=== PATIENT | male | born 1940 | race Caucasian/White ===

== ENCOUNTER 2020-02-11 06:19 | Day surgery (SDC) | payer OTHER ==
[2020-02-10 16:47] VITALS: BMI 26.9
[~2020-02-11 06:19] MED LIST: TOBRAMYCIN/DEXAMETHASONE OPHTH. OINTMENT 1 TUBE OS ONE
[2020-02-11] MEDS ORDERED: ACETAMINOPHEN 325 MG TABLET (FP) PO PRN (06:45)
[2020-02-11] MEDS ORDERED: TOBRAMYCIN/DEXAMETHASONE OPHTH. OINTMENT 1 TUBE ONE (07:02)
[2020-02-11] MEDS ORDERED: CHONDROITIN SU A/HYALUR SOD 1 KIT ONE (07:03)
[2020-02-11] MEDS ORDERED: BSS (NA/CA/MG/K) BALANCED SALT SOLUTION OPHTH SOLN 15 ML BOTTLE ONE (07:12)
[2020-02-11] MEDS ORDERED: LIDOCAINE HCL/PF 1% SDV 5ML VIAL ONE (07:12)
[2020-02-11] MEDS ORDERED: TETRACAINE 0.5% OPHTH SOLN 2 ML BOTTLE ONE (07:12)
[2020-02-11] MEDS ORDERED: EPINEPHrine/PF 1 MG/1 ML (1:1,000) AMPULE ONE (07:12)
[2020-02-11] MEDS ORDERED: TROPICAMIDE 1% OPHTH SOLN 15 ML BOTTLE ONE (07:32)
[2020-02-11] MEDS: KETOROLAC TROMETHAMINE 0.5% EYE DROP 1 DROP DROPS OP SCH ×2 (07:45→07:56)
[2020-02-11] MEDS: CIPROFLOXACIN HCL 0.3% OPHTH 2.5ML BOTTLE OP SCH ×2 (07:45→07:56)
[2020-02-11] MEDS: PHENYLEPHRINE 2.5% OPHTH SOLN 15 ML BOTTLE OP SCH ×2 (07:45→07:56)
[2020-02-11] MEDS: TROPICAMIDE 1% OPHTH SOLN 15 ML BOTTLE OP SCH ×2 (07:45→07:57)
[2020-02-11] MEDS ORDERED: MIDAZOLAM HCL 2 MG/2 ML SINGLE DOSE VIAL ONE (07:53)
--- NOTE | 2020-02-11 08:34 | HP ---
- Patient Scheduled date of Surgery: 02/11/20 Scheduled Surgical Procedure: Phacoemulsification and cataract extraction with PCIOL Affected Eye: Left Chief Complaint (Indication for surgery): Decreased vision affecting ADLs - Ocular History Other Eye History: Other (benitez) Eye Medications: vigamox Previous Eye Surgery: none - Medical History Illnesses: Cardiac Disorders (Chest pain, SOB, AR, Valve disease) (s/p stent), Hypertension, Other (carotid stenosis s/p cea, OA, s/p aortic valve replacement, bladder ca s/p chemo) Current Medications: Ambulatory Orders Aspirin Coated [Ecotrin -] 81 mg PO DAILY 04/10/16 Ezetimibe/Simvastatin [Vytorin 10-20 mg Tablet] 1 tab PO DAILY 04/10/16 Metoprolol Tartrate [Lopressor -] 25 mg PO DAILY tablet 04/12/16 Clopidogrel Bisulfate [Plavix] 75 mg PO DAILY 02/11/20 Allergies/Adverse Reactions: Allergies Allergy/AdvReac Type Severity Reaction Status Date / Time clindamycin Allergy Verified 02/11/20 07:39 Ocular Examination - Best Corrected Visual Acuity Distance: Right eye: 20/40 glare Distance: Left eye: 20/40 glare - External/Slit Lamp Examination Abnormalities: papilloma upper lid - Intraocular Pressure Intraocular Pressure - Right eye: 13 Intraocular Pressure-Left eye: 13 - Lens Lens: 2+ ns trace psc 1+ cortical - Vitreous/Retina Vitreous/Retina: C:D 0.15 m/v/p wnl - Special Examination M - Right eye: +1.50 M - Left eye: +1.50 K - Right eye: 46.5/47.5 x076 K - Left eye: 46.5/47.75 x 060 AL - Right eye: 22.88 AL - Left eye: 23.09 IOL bag: +19.0 AUOOTO IOL sulcus: +18.5 MN60AC IOL AC: +15.5 MTA 4UO - Impression Impression: Cataract Left Eye - Plan Plan: Phacoemulsification and cataract extraction - IOL Left eye Post-hospital care will be provided in office on: 02/12/20
--- NOTE | 2020-02-11 08:35 | HP ---
History & Physical Update - History History: No Change - Physical Physical: No Change - Assessment Assessment: No Change - Plan Plan: No Change (H and P by Dr. Zambrano reviewed from 01/14/2020 no changes)
[2020-02-11] MEDS ORDERED: TETRACAINE 0.5% HCL 0.6ML DROPPER.BOTTLE TP ONE (08:48)
[2020-02-11] MEDS ORDERED: POVIDONE-IODINE 5% OPHTHALMIC PREP 30 ML SOLUTION OS ONE (08:51)
[2020-02-11] MEDS ORDERED: LIDOCAINE HCL 1% PRESERVATIVE FREE - 30ML VIAL IO ONE (08:59)
[2020-02-11] MEDS ORDERED: BSS (NA/CA/MG/K) BALANCED SALT SOLUTION OPHTH SOLN 15 ML BOTTLE OS ONE (08:59)
[2020-02-11] MEDS ORDERED: CHONDROITIN SU A/HYALUR SOD 1 KIT IO ONE (08:59)
[2020-02-11] MEDS ORDERED: EPINEPHrine/PF 1 MG/1 ML (1:1,000) AMPULE SQ ONE (09:05)
[2020-02-11] MEDS ORDERED: TOBRAMYCIN/DEXAMETHASONE OPHTH. OINTMENT 1 TUBE OS ONE (09:26)
--- NOTE | 2020-02-11 09:39 | OP ---
Ophthalmology Operative Note Pre-Operative Diagnosis: Cataract Affected Eye: Left (nuclear sclerotic) Operation: Phacoemulsification and cataract extraction with PCIOL Findings: NS cataract left eye Post-Operative Diagnosis: Same as Pre-op Pin Pusher: None Anesthesiologist: Sabrina Anderson Anesthesia: Topical Specimens Removed: none Estimated blood loss: < 1 cc Drains & Tubes with Location: NS Operative Report Dictated: Yes
[2020-02-11 09:52] VITALS: TEMP 97.4
--- NOTE | 2020-02-11 10:19 | OP ---
DATE OF OPERATION: 02/11/2020 PREOPERATIVE DIAGNOSIS: Nuclear sclerotic cataract, left eye. POSTOPERATIVE DIAGNOSIS: Nuclear sclerotic cataract, left eye. PROCEDURE: Phacoemulsification and cataract extraction with implantation of posterior chamber intraocular lens. SURGEON: Mary Maria MD GARMENT STEAMER: None. ANESTHESIA: Topical. ANESTHESIOLOGIST: ABILIO Vance OPERATIVE PROCEDURE: The patient received Tetracaine eye drops and was gently sedated and prepped and draped in the usual sterile fashion so as to expose only the left eye. Ophthalmic Betadine was instilled into the inferior fornix and lashes were taped out of the surgical field. An eyelid speculum was placed into the left eye. Paracentesis was made in temporal clear cornea at the limbus. Then 0.5 mL of nonpreserved lidocaine 1% was injected into the anterior chamber and then 1 mL of dilute epinephrine 1:10,000 was injected into the anterior chamber to improve pupillary dilation. Viscoelastic material was instilled into the anterior chamber via the paracentesis. A 2.4-mm keratome blade was then used to create the main incision in temporal clear cornea at the limbus. A continuous curvilinear capsulorhexis was performed using a cystotome and Utrata forceps. Hydrodissection of the lens cortex was performed using BSS on a cannula until the nucleus was noted to be freely rotating. The phacoemulsification tip was then inserted via the main wound and used to scope 2 perpendicular grooves into the lens nucleus. The nucleus was cracked into 4 quadrants. Each quadrant was lifted out of the capsule into the iris plane and individually phacoemulsified. The remaining cortical material was then aspirated using the irrigation/aspiration port. The capsular bag was inflated using ProVisc and a preloaded AcrySof lens model [id number] power 19.0 diopters was injected into the capsular bag. It was centered using a Sinskey hook. The residual viscoelastic material was removed from the anterior chamber using irrigation and aspiration. The wound edges were hydrated using BSS. The wound was tested for leakage and was found to be watertight. Tobradex ointment was placed in the eye, and the speculum was removed from the eye, and the eyelid was closed. A sterile dressing and shield were placed over the eye. The patient was transferred to the recovery room in stable condition, told to follow up in 1 day. MARY MARIA M.D. [id number]
[2020-02-11 11:51] VITALS: BP 120/60; PULSE 50
== END 2020-02-11 11:15 | disposition home or self-care (01) ==
LOC: JASU-SURG 06:19
PROVIDERS: ATTEND Ophthalmology
PROC: 08RK3JZ Replacement of Left Lens with Synthetic Substitute, Percutaneous Approach (ICD-10-PCS; principal; 2020-02-11 08:30)
DX: H25.12 Age-related nuclear cataract, left eye (principal)

== ENCOUNTER 2020-10-06 07:38 | Inpatient (IN) | payer OTHER ==
[2020-10-06 09:15] LABS: BASO % 0.2 % (0-2.0); EOS % 0.2 % (0-4.5); HEMATOCRIT 24.1 % (35.4-49); HEMOGLOBIN 7.3 GM/dL (11.7-16.9); LYMPH % 3.7 % (8-40); MCH 20.5 pg (25.7-33.7); MCHC 30.2 g/dl (32.0-35.9); MEAN CELL VOLUME 67.6 fl (80-96); MEAN PLT VOLUME 9.1 fl (7.5-11.1); MONO % 6.1 % (3.8-10.2); NEUT % 89.8 % (42.8-82.8); PLATELET COUNT 205 K/MM3 (134-434); RBC 3.57 M/mm3 (4.00-5.60); RDW 16.2 % (11.9-15.9); WHITE BLOOD COUNT 12.9 K/mm3 (4.0-10.0)
[2020-10-06 09:22] LABS: INR 1.11 (0.83-1.09); PROTHROMBIN TIME (PATIENT) 13.6 SEC (9.7-13.0)
[2020-10-06 09:25] LABS: ACTIVATED PTT 27.3 SECONDS (25.2-36.5)
[2020-10-06 09:41] LABS: CHLORIDE 104 mmol/L (98-107); POTASSIUM 4.5 mmol/L (3.5-5.1); SODIUM 137 mmol/L (136-145)
[2020-10-06 09:43] LABS: CALCIUM 8.8 mg/dL (8.5-10.1)
[2020-10-06 09:44] LABS: ALBUMIN 3.2 g/dl (3.4-5.0); ANION GAP 7 MMOL/L (8-16); CO2 26 mmol/L (21-32)
[2020-10-06 09:45] LABS: BLOOD UREA NITROGEN 33.4 mg/dL (7-18); GLUCOSE,RANDOM 121 mg/dL (74-106)
[2020-10-06 09:47] LABS: SGOT/AST 28 U/L (15-37); SGPT/ALT 20 U/L (13-61)
[2020-10-06 09:49] LABS: CREATININE 1.3 mg/dL (0.55-1.3)
[2020-10-06 09:50] LABS: ALK PHOS 82 U/L (45-117); BILIRUBIN,TOTAL 0.4 mg/dL (0.2-1)
[2020-10-06 10:59] LABS: ANISOCYTOSIS 2+; MACROCYTOSIS 0; OVALOCYTE 1+; PLATELET ESTIMATE NORMAL
[2020-10-06 12:39] LABS: BASO % 0.2 % (0-2.0); EOS % 0.4 % (0-4.5); HEMATOCRIT 27.5 % (35.4-49); HEMOGLOBIN 8.5 GM/dL (11.7-16.9); LYMPH % 6.4 % (8-40); MCH 20.9 pg (25.7-33.7); MCHC 30.9 g/dl (32.0-35.9); MEAN CELL VOLUME 67.6 fl (80-96); MEAN PLT VOLUME 9.3 fl (7.5-11.1); MONO % 6.3 % (3.8-10.2); NEUT % 86.7 % (42.8-82.8); PLATELET COUNT 244 K/MM3 (134-434); RBC 4.06 M/mm3 (4.00-5.60); RDW 16.4 % (11.9-15.9); WHITE BLOOD COUNT 13.9 K/mm3 (4.0-10.0)
[2020-10-06 12:41] LABS: EPI CELLS 3 /uL (0-25.1); HYALINE CASTS 2 /uL (0-3.1); PH,URINE 5.5 (5.0-8.0); URINE APPEARANCE CLEAR; URINE BACTERIA 11 /uL (0-1359); URINE BILIRUBIN NEGATIVE (NEGATIVE); URINE COLOR YELLOW; URINE GLUCOSE (UA) NEGATIVE (NEGATIVE); URINE KETONE NEGATIVE (NEGATIVE); URINE LEUK ESTERASE NEGATIVE (NEGATIVE); URINE NITRITE NEGATIVE (NEGATIVE); URINE PROTEIN 3+ (NEGATIVE); URINE RBC 11 /uL (0-23.9); URINE UROBILINOGEN 0.2 mg/dL (0.2-1.0); URINE WBC 4 /uL (0-25.8)
[2020-10-06] MEDS ORDERED: ACETAMINOPHEN 325 MG TABLET (FP) PO PRN (12:45)
[2020-10-06 17:06] VITALS: BMI 26.4
[2020-10-06] MEDS: oxyCODONE HCL 5 MG TABLET PO PRN ×2 (17:23→23:32)
[2020-10-06] MEDS ORDERED: ACETAMINOPHEN 1000 MG/100 ML VIAL (NON FORMULARY) IVPB ONE (19:54)
[2020-10-06] MEDS ORDERED: VANCOMYCIN 1 GRAM (PRE-DOCKED) 1,000 MG/250 ML BAG IVPB ONE (19:58)
[2020-10-06] MEDS ORDERED: PIPERACILLIN/TAZOB 3.375 GM 3.375 GM in DEXTROSE 5%-WATER - 50 ML IVPB ONE (19:59)
[2020-10-06] MEDS ORDERED: DEXTROSE 5%-WATER - 50 ML IVPB ONE (20:12)
[2020-10-06] MEDS ORDERED: PIPERACILLIN/TAZOBACTAM 3.375 GM VIAL IVPB ONE (20:12)
[2020-10-06] MEDS: DEXTROSE 5%-0.45% SALINE 1,000 ML IV SCH (21:25)
[2020-10-06] MEDS: DOCUSATE SODIUM 100 MG CAPSULE (FP) PO SCH (21:26)
[2020-10-06] MEDS: ATORVASTATIN CA 40 MG TABLET (FP) PO SCH (21:26)
[2020-10-06] MEDS: cloNIDine HCL 0.1 MG TABLET PO SCH (21:27)
[2020-10-07 08:29] LABS: BASO % 0.3 % (0-2.0); EOS % 0.6 % (0-4.5); HEMATOCRIT 24.7 % (35.4-49); HEMOGLOBIN 7.7 GM/dL (11.7-16.9); LYMPH % 5.4 % (8-40); MCH 20.8 pg (25.7-33.7); MEAN CELL VOLUME 67.1 fl (80-96); MEAN PLT VOLUME 9.4 fl (7.5-11.1); MONO % 5.4 % (3.8-10.2); NEUT % 88.3 % (42.8-82.8); PLATELET COUNT 245 K/MM3 (134-434); RBC 3.67 M/mm3 (4.00-5.60); RDW 16.1 % (11.9-15.9); WHITE BLOOD COUNT 13.1 K/mm3 (4.0-10.0)
[2020-10-07 08:52] LABS: POTASSIUM 4.7 mmol/L (3.5-5.1)
[2020-10-07 08:53] LABS: CALCIUM 8.8 mg/dL (8.5-10.1)
[2020-10-07 08:54] LABS: ALBUMIN 2.9 g/dl (3.4-5.0); BLOOD UREA NITROGEN 32.9 mg/dL (7-18)
[2020-10-07 08:57] LABS: CREATININE 1.5 mg/dL (0.55-1.3)
[2020-10-07 08:59] LABS: BILIRUBIN,TOTAL 0.6 mg/dL (0.2-1); TOT PROT 5.8 g/dl (6.4-8.2)
[2020-10-07] MEDS ORDERED: PT OWN MED DRAWER 7, Y5N ONE (09:30)
[2020-10-07] MEDS: DOCUSATE SODIUM 100 MG CAPSULE (FP) PO SCH ×2 (09:33→21:47)
[2020-10-07] MEDS: amLODIPine BESYLATE 10 MG TABLET (FP) PO SCH (09:34)
[2020-10-07] MEDS: ACETAMINOPHEN 325 MG TABLET (FP) PO PRN ×2 (09:34→16:38)
[2020-10-07] MEDS: TRIAMTERENE AND HCTZ - 37.5 MG/25 MG CAPSULE PO SCH (09:34)
[2020-10-07] MEDS: hydrALAZINE HCL 10 MG TABLET PO SCH (09:34)
[2020-10-07] MEDS: cloNIDine HCL 0.1 MG TABLET PO SCH ×2 (09:35→21:47)
[2020-10-07] MEDS: oxyCODONE HCL 5 MG TABLET PO PRN ×2 (09:35→16:38)
[2020-10-07] MEDS: VALSARTAN 160 MG TABLET PO SCH (09:36)
[2020-10-07] MEDS ORDERED: BISACODYL 5 MG TABLET.DR (FP) PO ONE (14:35)
[2020-10-07] MEDS ORDERED: PIPERACILLIN/TAZOBACTAM 3.375 GM VIAL IVPB ONE ×2 (16:17→19:41)
[2020-10-07] MEDS ORDERED: DEXTROSE 5%-WATER - 50 ML IVPB ONE ×2 (16:17→19:41)
[2020-10-07] MEDS: POLYETHYLENE GLYCOL 3350 119 GM BTL PO SCH (16:26)
[2020-10-07] MEDS: PIPERACILLIN/TAZOB 3.375 GM 3.375 GM in DEXTROSE 5%-WATER - 50 ML IVPB SCH ×2 (16:26→19:53)
[2020-10-07] MEDS: VANCOMYCIN 1 GRAM (PRE-DOCKED) 1,000 MG/250 ML BAG IVPB SCH (16:27)
[2020-10-07] MEDS: DEXTROSE 5%-0.45% SALINE 1,000 ML IV SCH ×2 (19:52→21:46)
[2020-10-07] MEDS: ATORVASTATIN CA 40 MG TABLET (FP) PO SCH (21:47)
[2020-10-08] MEDS ORDERED: DEXTROSE 5%-WATER - 50 ML IVPB ONE ×3 (00:42→17:00)
[2020-10-08] MEDS ORDERED: PIPERACILLIN/TAZOBACTAM 3.375 GM VIAL IVPB ONE ×3 (00:42→17:00)
[2020-10-08] MEDS: PIPERACILLIN/TAZOB 3.375 GM 3.375 GM in DEXTROSE 5%-WATER - 50 ML IVPB SCH ×3 (02:09→17:20)
[2020-10-08] MEDS: oxyCODONE HCL 5 MG TABLET PO PRN ×2 (02:24→19:38)
[2020-10-08] MEDS: ACETAMINOPHEN 325 MG TABLET (FP) PO PRN (02:24)
[2020-10-08 08:49] LABS: BASO % 0.2 % (0-2.0); EOS % 1.1 % (0-4.5); HEMATOCRIT 24.1 % (35.4-49); HEMOGLOBIN 7.7 GM/dL (11.7-16.9); LYMPH % 4.9 % (8-40); MCH 21.7 pg (25.7-33.7); MEAN CELL VOLUME 67.7 fl (80-96); MEAN PLT VOLUME 9.7 fl (7.5-11.1); MONO % 6.6 % (3.8-10.2); NEUT % 87.2 % (42.8-82.8); PLATELET COUNT 265 K/MM3 (134-434); RBC 3.56 M/mm3 (4.00-5.60); WHITE BLOOD COUNT 12.3 K/mm3 (4.0-10.0)
[2020-10-08 09:14] LABS: POTASSIUM 4.6 mmol/L (3.5-5.1)
[2020-10-08 09:19] LABS: CALCIUM 8.5 mg/dL (8.5-10.1)
[2020-10-08 09:20] LABS: ALBUMIN 2.7 g/dl (3.4-5.0); BLOOD UREA NITROGEN 33.5 mg/dL (7-18)
[2020-10-08 09:23] LABS: CREATININE 1.5 mg/dL (0.55-1.3)
[2020-10-08 09:24] LABS: BILIRUBIN,TOTAL 0.9 mg/dL (0.2-1); TOT PROT 5.5 g/dl (6.4-8.2)
[2020-10-08] MEDS: cloNIDine HCL 0.1 MG TABLET PO SCH ×2 (12:24→21:25)
[2020-10-08] MEDS: DOCUSATE SODIUM 100 MG CAPSULE (FP) PO SCH ×2 (12:24→21:25)
[2020-10-08] MEDS: VALSARTAN 160 MG TABLET PO SCH (12:24)
[2020-10-08] MEDS: TRIAMTERENE AND HCTZ - 37.5 MG/25 MG CAPSULE PO SCH (12:25)
[2020-10-08] MEDS: amLODIPine BESYLATE 10 MG TABLET (FP) PO SCH (12:25)
[2020-10-08] MEDS: POLYETHYLENE GLYCOL 3350 119 GM BTL PO SCH (12:25)
[2020-10-08] MEDS: hydrALAZINE HCL 10 MG TABLET PO SCH (12:25)
[2020-10-08] MEDS ORDERED: BISACODYL 5 MG TABLET.DR (FP) PO PRN (14:28)
[2020-10-08] MEDS: VANCOMYCIN 1 GRAM (PRE-DOCKED) 1,000 MG/250 ML BAG IVPB SCH (17:20)
[2020-10-08] MEDS: MELATONIN 5 MG TABLETS PO PRN (21:24)
[2020-10-08] MEDS: ATORVASTATIN CA 40 MG TABLET (FP) PO SCH (21:25)
[2020-10-08] MEDS: DEXTROSE 5%-0.45% SALINE 1,000 ML IV SCH (22:49)
[2020-10-09] MEDS ORDERED: PIPERACILLIN/TAZOBACTAM 3.375 GM VIAL IVPB ONE ×3 (01:08→17:37)
[2020-10-09] MEDS ORDERED: DEXTROSE 5%-WATER - 50 ML IVPB ONE ×3 (01:08→17:38)
[2020-10-09] MEDS: PIPERACILLIN/TAZOB 3.375 GM 3.375 GM in DEXTROSE 5%-WATER - 50 ML IVPB SCH ×3 (01:46→17:43)
[2020-10-09] MEDS ORDERED: PT OWN MED DRAWER 7, Y5N ONE ×2 (09:12→12:31)
[2020-10-09] MEDS: cloNIDine HCL 0.1 MG TABLET PO SCH ×2 (09:22→22:17)
[2020-10-09] MEDS: hydrALAZINE HCL 10 MG TABLET PO SCH (09:22)
[2020-10-09] MEDS: VALSARTAN 160 MG TABLET PO SCH (09:22)
[2020-10-09] MEDS: DOCUSATE SODIUM 100 MG CAPSULE (FP) PO SCH ×2 (09:22→22:17)
[2020-10-09] MEDS: POLYETHYLENE GLYCOL 3350 119 GM BTL PO SCH (09:23)
[2020-10-09] MEDS: amLODIPine BESYLATE 10 MG TABLET (FP) PO SCH (09:23)
[2020-10-09] MEDS: TRIAMTERENE AND HCTZ - 37.5 MG/25 MG CAPSULE PO SCH (12:40)
[2020-10-09] MEDS ORDERED: oxyCODONE HCL 5 MG TABLET PO PRN (14:14)
[2020-10-09] MEDS ORDERED: SODIUM PHOSPHATE/NA BIPHOS 133 ML ENEMA RC PRN (14:15)
[2020-10-09] MEDS: VANCOMYCIN 1 GRAM (PRE-DOCKED) 1,000 MG/250 ML BAG IVPB SCH (14:20)
[2020-10-09] MEDS ORDERED: ACETAMINOPHEN 1000 MG/100 ML VIAL (NON FORMULARY) IVPB PRN (16:44)
[2020-10-09] MEDS: HYDROmorphone HCL 2 MG TABLET PO PRN (20:30)
[2020-10-09] MEDS: ATORVASTATIN CA 40 MG TABLET (FP) PO SCH (22:17)
[2020-10-09] MEDS: ACETAMINOPHEN 325 MG TABLET (FP) PO PRN (22:19)
[2020-10-09] MEDS: MELATONIN 5 MG TABLETS PO PRN (22:19)
[2020-10-10] MEDS ORDERED: DEXTROSE 5%-WATER - 50 ML IVPB ONE ×3 (01:00→16:56)
[2020-10-10] MEDS ORDERED: PIPERACILLIN/TAZOBACTAM 3.375 GM VIAL IVPB ONE ×3 (01:00→16:56)
[2020-10-10] MEDS: PIPERACILLIN/TAZOB 3.375 GM 3.375 GM in DEXTROSE 5%-WATER - 50 ML IVPB SCH ×3 (03:19→17:18)
[2020-10-10] MEDS: HYDROmorphone HCL 2 MG TABLET PO PRN (04:17)
[2020-10-10 08:17] LABS: BASO % 0.5 % (0-2.0); EOS % 1.9 % (0-4.5); LYMPH % 7.7 % (8-40); MCHC 32.2 g/dl (32.0-35.9); MEAN CELL VOLUME 68.3 fl (80-96); MEAN PLT VOLUME 9.1 fl (7.5-11.1); MONO % 8.9 % (3.8-10.2); PLATELET COUNT 341 K/MM3 (134-434); RDW 16.1 % (11.9-15.9); WHITE BLOOD COUNT 10.8 K/mm3 (4.0-10.0)
[2020-10-10 08:20] LABS: POTASSIUM 4.8 mmol/L (3.5-5.1)
[2020-10-10 08:23] LABS: ALBUMIN 2.4 g/dl (3.4-5.0); CALCIUM 8.6 mg/dL (8.5-10.1)
[2020-10-10 08:24] LABS: BLOOD UREA NITROGEN 33.4 mg/dL (7-18)
[2020-10-10 08:27] LABS: CREATININE 1.4 mg/dL (0.55-1.3)
[2020-10-10 08:28] LABS: BILIRUBIN,TOTAL 0.8 mg/dL (0.2-1); TOT PROT 5.6 g/dl (6.4-8.2)
[2020-10-10] MEDS ORDERED: PT OWN MED DRAWER 7, Y5N ONE ×2 (09:08→16:55)
[2020-10-10] MEDS: hydrALAZINE HCL 10 MG TABLET PO SCH (10:16)
[2020-10-10] MEDS: cloNIDine HCL 0.1 MG TABLET PO SCH ×2 (10:16→21:24)
[2020-10-10] MEDS: DOCUSATE SODIUM 100 MG CAPSULE (FP) PO SCH ×2 (10:17→21:25)
[2020-10-10] MEDS: POLYETHYLENE GLYCOL 3350 119 GM BTL PO SCH (10:18)
[2020-10-10] MEDS: VALSARTAN 160 MG TABLET PO SCH (10:18)
[2020-10-10] MEDS: amLODIPine BESYLATE 10 MG TABLET (FP) PO SCH (10:18)
[2020-10-10 12:20] LABS: ANISOCYTOSIS 1+; OVALOCYTE 1+
[2020-10-10] MEDS: TRIAMTERENE AND HCTZ - 37.5 MG/25 MG CAPSULE PO SCH (17:17)
[2020-10-10] MEDS: VANCOMYCIN 1 GRAM (PRE-DOCKED) 1,000 MG/250 ML BAG IVPB SCH (18:50)
[2020-10-10] MEDS: ATORVASTATIN CA 40 MG TABLET (FP) PO SCH (21:24)
[2020-10-10] MEDS: ACETAMINOPHEN 325 MG TABLET (FP) PO PRN (21:25)
[2020-10-10] MEDS: MELATONIN 5 MG TABLETS PO PRN (22:37)
[2020-10-10] MEDS ORDERED: COLCHICINE 0.6 MG TAB PO ONE (22:45)
[2020-10-11] MEDS ORDERED: DEXTROSE 5%-WATER - 50 ML IVPB ONE ×2 (02:28→09:28)
[2020-10-11] MEDS ORDERED: PIPERACILLIN/TAZOBACTAM 3.375 GM VIAL IVPB ONE ×2 (02:28→09:28)
[2020-10-11] MEDS: PIPERACILLIN/TAZOB 3.375 GM 3.375 GM in DEXTROSE 5%-WATER - 50 ML IVPB SCH ×2 (02:54→09:51)
[2020-10-11] MEDS ORDERED: PT OWN MED DRAWER 7, Y5N ONE (09:28)
[2020-10-11] MEDS: DOCUSATE SODIUM 100 MG CAPSULE (FP) PO SCH ×2 (09:50→21:46)
[2020-10-11] MEDS: amLODIPine BESYLATE 10 MG TABLET (FP) PO SCH (09:51)
[2020-10-11] MEDS: TRIAMTERENE AND HCTZ - 37.5 MG/25 MG CAPSULE PO SCH (09:51)
[2020-10-11] MEDS: hydrALAZINE HCL 10 MG TABLET PO SCH (09:51)
[2020-10-11] MEDS: cloNIDine HCL 0.1 MG TABLET PO SCH ×2 (09:52→21:47)
[2020-10-11] MEDS: POLYETHYLENE GLYCOL 3350 119 GM BTL PO SCH (09:52)
[2020-10-11] MEDS: VALSARTAN 160 MG TABLET PO SCH (09:52)
[2020-10-11] MEDS: HYDROmorphone HCL 2 MG TABLET PO PRN (11:02)
[2020-10-11] MEDS ORDERED: COLCHICINE 0.6 MG CAP PO ONE (14:00)
[2020-10-11] MEDS ORDERED: ACETAMINOPHEN 500 MG TABLET (FP) PO PRN (20:10)
[2020-10-11] MEDS: MELATONIN 5 MG TABLETS PO PRN (21:46)
[2020-10-11] MEDS: ATORVASTATIN CA 40 MG TABLET (FP) PO SCH (21:46)
[2020-10-12 06:58] VITALS: TEMP 98.9
[2020-10-12] MEDS ORDERED: TAMSULOSIN HCL 0.4 MG CAP PO SCH (08:30)
[2020-10-12] MEDS ORDERED: PT OWN MED DRAWER 7, Y5N ONE (09:35)
[2020-10-12] MEDS: hydrALAZINE HCL 10 MG TABLET PO SCH (09:52)
[2020-10-12] MEDS: cloNIDine HCL 0.1 MG TABLET PO SCH (09:53)
[2020-10-12] MEDS: DOCUSATE SODIUM 100 MG CAPSULE (FP) PO SCH (09:53)
[2020-10-12] MEDS: amLODIPine BESYLATE 10 MG TABLET (FP) PO SCH (09:55)
[2020-10-12] MEDS: VALSARTAN 160 MG TABLET PO SCH (09:55)
[2020-10-12] MEDS: TRIAMTERENE AND HCTZ - 37.5 MG/25 MG CAPSULE PO SCH (09:55)
[2020-10-12] MEDS: POLYETHYLENE GLYCOL 3350 119 GM BTL PO SCH (09:55)
[2020-10-12] MEDS ORDERED: COLCHICINE 0.6 MG TAB PO SCH (10:00)
[2020-10-12 10:28] VITALS: BP 151/54; PULSE 91
== END 2020-10-12 14:20 | disposition home or self-care (01) | DRG 920 ==
LOC: JER 07:38 → SUPCPDRO 07:38 → JERBED 11:53 → J5S 15:09
PROVIDERS: ADMIT Internal Medicine; ATTEND Internal Medicine
PROC: 30233N1 Transfusion of Nonautologous Red Blood Cells into Peripheral Vein, Percutaneous Approach (ICD-10-PCS; principal; 2020-10-09)
DX: K91.870 Postprocedural hematoma of a digestive system organ or structure following a digestive system procedure (principal); N13.30 Unspecified hydronephrosis; I25.10 Atherosclerotic heart disease of native coronary artery without angina pectoris; I10 Essential (primary) hypertension; E78.5 Hyperlipidemia, unspecified; J44.9 Chronic obstructive pulmonary disease, unspecified; I35.0 Nonrheumatic aortic (valve) stenosis; R50.9 Fever, unspecified; D64.89 Other specified anemias; K59.00 Constipation, unspecified; Z98.890 Other specified postprocedural states; Z87.19 Personal history of other diseases of the digestive system; Z95.2 Presence of prosthetic heart valve; Z86.73 Personal history of transient ischemic attack (TIA), and cerebral infarction without residual deficits; Z87.891 Personal history of nicotine dependence; Y83.8 Other surgical procedures as the cause of abnormal reaction of the patient, or of later complication, without mention of misadventure at the time of the procedure; Z85.51 Personal history of malignant neoplasm of bladder; Z95.5 Presence of coronary angioplasty implant and graft
CPT/HCPCS: 36415; 36430; 71045-TC-FY; 74176-TC; 80053; 81003; 82550; 84484; 85025; 85610; 85730; 86850; 86900; 86901; 86922; 87040; 87086; 93005; 93010; 94760; 97116-GP; 97161-GP; 99285-25; C9803; G0480; J0131; J0735; P9058; U0003

== ENCOUNTER 2022-10-13 10:44 | Emergency (ER) | payer OTHER ==
[2022-10-13 11:02] VITALS: BP 172/82; PULSE 91; RESP 20; BMI 25.7
[2022-10-13] MEDS ORDERED: ACETAMINOPHEN 500 MG TABLET (FP) PO ONE (11:06)
[2022-10-13] MEDS ORDERED: ACETAMINOPHEN 325 MG TABLET (FP) ONE (11:12)
[2022-10-13 12:35] LABS: EPITHELIAL CELLS RARE /hpf
[2022-10-13 12:47] VITALS: TEMP 99.2
== END 2022-10-13 13:14 | disposition home or self-care (01) ==
LOC: FER 10:44
DX: N39.0 Urinary tract infection, site not specified (principal)
CPT/HCPCS: 0241U-QW; 81003; 81015; 87086; 87186; 99283-25

== ENCOUNTER 2022-11-01 09:43 | Emergency (ER) | payer OTHER ==
[2022-11-01 09:52] VITALS: TEMP 97.6; BMI 25.0
[2022-11-01 11:43] LABS: EOS % 0.8 % (0-4.5); HEMATOCRIT 28.6 % (35.4-49); LYMPH % 17.9 % (8-40); MCH 21.4 pg (25.7-33.7); MCHC 31.4 g/dl (32.0-35.9); MEAN CELL VOLUME 68.1 fl (80-96); MEAN PLT VOLUME 7.8 fl (7.5-11.1); MONO % 8.4 % (3.8-10.2); NEUT % 71.9 % (42.8-82.8); PLATELET COUNT 361 10^3/uL (134-434); RBC 4.21 M/mm3 (4.00-5.60); RDW 16.1 % (11.9-15.9); WHITE BLOOD COUNT 5.5 K/mm3 (4.0-10.0)
[2022-11-01 11:59] LABS: CHLORIDE 113 mmol/L (98-107); SODIUM 140 mmol/L (136-145)
[2022-11-01 12:01] LABS: CALCIUM 9.1 mg/dL (8.5-10.1)
[2022-11-01 12:02] LABS: ALBUMIN 3.6 g/dl (3.4-5.0); BLOOD UREA NITROGEN 62.3 mg/dL (7-18); CO2 22 mmol/L (21-32); GLUCOSE,RANDOM 118 mg/dL (74-106); MAGNESIUM 2.5 mg/dL (1.8-2.4)
[2022-11-01 12:05] LABS: CREATININE 1.8 mg/dL (0.55-1.3); SGOT/AST 29 U/L (15-37); SGPT/ALT 57 U/L (13-61)
[2022-11-01 12:06] LABS: BILIRUBIN,TOTAL 0.2 mg/dL (0.2-1); TOT PROT 6.4 g/dl (6.4-8.2)
[2022-11-01 12:07] LABS: ALK PHOS 101 U/L (45-117)
[2022-11-01 12:08] LABS: ANION GAP 5 MMOL/L (8-16)
[2022-11-01] MEDS ORDERED: CALCIUM GLUCONATE 10% - 1,000 MG/10 ML VIAL IVPB ONE (12:20)
[2022-11-01] MEDS ORDERED: INSULIN REGULAR HUMAN 100 UNITS/ML *VIAL IVPUSH ONE (12:23)
[2022-11-01] MEDS ORDERED: DEXTROSE 50%-WATER - 25 GM/50 ML VIAL IVPUSH ONE (12:26)
[2022-11-01] MEDS ORDERED: ALBUTEROL SO4 0.083% IH SOL 2.5 MG/3 ML VIAL.NEB. NEB ONE ×2 (12:27→12:39)
[2022-11-01] MEDS ORDERED: SODIUM ZIRCONIUM CYCLOSILICATE (LOKELMA) 5 GM PACKET PO ONE (12:27)
[2022-11-01] MEDS ORDERED: FUROSEMIDE 40 MG/4 ML INJECTABLE VIAL IVPUSH ONE (12:32)
[2022-11-01] MEDS ORDERED: INSULIN REGULAR HUMAN 100 UNITS/ML *VIAL ONE (12:39)
[2022-11-01] MEDS ORDERED: DEXTROSE 50%-WATER 25 GM/50 ML DISP.SYRIN ONE (12:39)
[2022-11-01] MEDS ORDERED: SODIUM ZIRCONIUM CYCLOSILICATE (LOKELMA) 5 GM PACKET ONE (12:39)
[2022-11-01] MEDS ORDERED: CALCIUM GLUCONATE 10% - 1,000 MG/10 ML VIAL ONE (12:39)
[2022-11-01] MEDS ORDERED: FUROSEMIDE 40 MG/4 ML INJECTABLE VIAL ONE (12:57)
[2022-11-01 13:01] LABS: ANISOCYTOSIS 3+; MACROCYTOSIS 0
[2022-11-01 15:20] LABS: BLOOD UREA NITROGEN 60.2 mg/dL (7-18); CALCIUM 9.5 mg/dL (8.5-10.1)
[2022-11-01 15:24] LABS: CREATININE 1.8 mg/dL (0.55-1.3)
[2022-11-01 16:27] VITALS: BP 133/78; PULSE 76; RESP 19
== END 2022-11-01 16:27 | disposition home or self-care (01) ==
LOC: JER 09:43
PROC: 3E033GC Introduction of Other Therapeutic Substance into Peripheral Vein, Percutaneous Approach (ICD-10-PCS; principal; 2022-11-01)
PROC: 3E0F7GC Introduction of Other Therapeutic Substance into Respiratory Tract, Via Natural or Artificial Opening (ICD-10-PCS; 2022-11-01)
DX: E87.5 Hyperkalemia (principal)
CPT/HCPCS: 0241U-QW; 36415; 80048; 80053; 83735; 85025; 93005; 93010; 99284-25

== ENCOUNTER 2023-06-26 11:13 | Inpatient (IN) | payer OTHER ==
[2023-06-26] MEDS ORDERED: ACETAMINOPHEN 1000 MG/100 ML BAG IVPB ONE (12:18)
[2023-06-26 13:15] LABS: BASO % 0.5 % (0-2.0); EOS % 0.6 % (0-4.5); HEMATOCRIT 33.7 % (35.4-49); HEMOGLOBIN 10.7 GM/dL (11.7-16.9); LYMPH % 12.5 % (8-40); MCHC 31.6 g/dl (32.0-35.9); MEAN CELL VOLUME 66.4 fl (80-96); MEAN PLT VOLUME 8.6 fl (7.5-11.1); MONO % 6.7 % (3.8-10.2); NEUT % 79.7 % (42.8-82.8); PLATELET COUNT 249 10^3/uL (134-434); RBC 5.08 M/mm3 (4.00-5.60); WHITE BLOOD COUNT 7.8 K/mm3 (4.0-10.0)
[2023-06-26 13:22] LABS: INR 0.92 (0.83-1.09); PROTHROMBIN TIME (PATIENT) 10.7 SEC (9.7-13.0)
[2023-06-26 13:25] LABS: ACTIVATED PTT 29.8 SECONDS (25.2-36.5)
[2023-06-26 13:44] LABS: ANISOCYTOSIS 2+
[2023-06-26 13:47] LABS: POTASSIUM 5.7 mmol/L (3.5-5.1)
[2023-06-26 13:49] LABS: BLOOD UREA NITROGEN 51.5 mg/dL (7-18); CALCIUM 9.1 mg/dL (8.5-10.1); MAGNESIUM 3.6 mg/dL (1.8-2.4)
[2023-06-26 13:50] LABS: ALBUMIN 4.1 g/dl (3.4-5.0)
[2023-06-26 13:54] LABS: BILIRUBIN,TOTAL 0.2 mg/dL (0.2-1); TOT PROT 7.4 g/dl (6.4-8.2)
[2023-06-26] MEDS ORDERED: SODIUM CHLORIDE 0.9% 500 ML INFUS.BAG IV ONE ×2 (13:57→17:11)
[2023-06-26] MEDS ORDERED: ACETAMINOPHEN INJECTION 100 ML IVPB ONE (14:51)
[2023-06-26 15:40] LABS: PH,URINE 5.5 (5.0-8.0); URINE APPEARANCE CLEAR; URINE BILIRUBIN NEGATIVE (NEGATIVE); URINE COLOR YELLOW; URINE GLUCOSE (UA) 2+ (NEGATIVE); URINE KETONE NEGATIVE (NEGATIVE); URINE LEUK ESTERASE NEGATIVE (NEGATIVE); URINE NITRITE NEGATIVE (NEGATIVE); URINE PROTEIN TRACE (NEGATIVE); URINE UROBILINOGEN 0.2 mg/dL (0.2-1.0)
[2023-06-26 16:06] LABS: POTASSIUM 5.7 mmol/L (3.5-5.1)
[2023-06-26 16:08] LABS: BLOOD UREA NITROGEN 52.7 mg/dL (7-18); CALCIUM 9.3 mg/dL (8.5-10.1)
[2023-06-26] MEDS: cloNIDine HCL 0.1 MG TABLET PO SCH (22:29)
[2023-06-26] MEDS: hydrALAZINE HCL 10 MG TABLET PO SCH (22:29)
[2023-06-26] MEDS: ATORVASTATIN CA 40 MG TABLET (FP) PO SCH (22:29)
[2023-06-26 22:48] VITALS: BMI 24.5
[2023-06-27] MEDS: hydrALAZINE HCL 10 MG TABLET PO SCH ×3 (06:13→22:02)
[2023-06-27 07:02] LABS: EOS % 1.4 % (0-4.5); HEMATOCRIT 30.4 % (35.4-49); HEMOGLOBIN 9.4 GM/dL (11.7-16.9); MCH 21.2 pg (25.7-33.7); MCHC 30.9 g/dl (32.0-35.9); MEAN CELL VOLUME 68.5 fl (80-96); MEAN PLT VOLUME 9.1 fl (7.5-11.1); MONO % 9.3 % (3.8-10.2); NEUT % 65.3 % (42.8-82.8); PLATELET COUNT 234 10^3/uL (134-434); RBC 4.44 M/mm3 (4.00-5.60); RDW 15.9 % (11.9-15.9); WHITE BLOOD COUNT 5.5 K/mm3 (4.0-10.0)
[2023-06-27 07:23] LABS: POTASSIUM 5.3 mmol/L (3.5-5.1)
[2023-06-27 07:34] LABS: CALCIUM 8.7 mg/dL (8.5-10.1)
[2023-06-27 07:35] LABS: ALBUMIN 3.4 g/dl (3.4-5.0)
[2023-06-27 07:36] LABS: BILIRUBIN,TOTAL 0.3 mg/dL (0.2-1); TOT PROT 6.2 g/dl (6.4-8.2)
[2023-06-27 07:41] LABS: CREATININE 1.8 mg/dL (0.55-1.3)
[2023-06-27] MEDS: TAMSULOSIN HCL 0.4 MG CAP PO SCH (10:57)
[2023-06-27] MEDS: VALSARTAN 160 MG TABLET PO SCH (10:57)
[2023-06-27] MEDS: ASPIRIN COATED 81 MG TABLET.EC PO SCH (10:57)
[2023-06-27] MEDS: cloNIDine HCL 0.1 MG TABLET PO SCH ×2 (10:58→22:02)
[2023-06-27] MEDS: amLODIPine BESYLATE 10 MG TABLET (FP) PO SCH (11:01)
[2023-06-27] MEDS ORDERED: CLOPIDOGREL BISULFATE 75 MG TABLET (FP) PO ONE (12:00)
[2023-06-27] MEDS ORDERED: SODIUM ZIRCONIUM CYCLOSILICATE (LOKELMA) 5 GM PACKET PO SCH (13:29)
[2023-06-27 15:17] VITALS: RESP 18
[2023-06-27] MEDS: ATORVASTATIN CA 40 MG TABLET (FP) PO SCH (22:02)
[2023-06-28] MEDS: hydrALAZINE HCL 10 MG TABLET PO SCH (06:06)
[2023-06-28 06:57] VITALS: TEMP 98.3
[2023-06-28] MEDS: TAMSULOSIN HCL 0.4 MG CAP PO SCH (08:05)
[2023-06-28 08:26] LABS: BLOOD UREA NITROGEN 50.9 mg/dL (7-18); CALCIUM 8.9 mg/dL (8.5-10.1)
[2023-06-28 08:27] LABS: ALBUMIN 3.5 g/dl (3.4-5.0)
[2023-06-28 08:30] LABS: BILIRUBIN,TOTAL 0.2 mg/dL (0.2-1)
[2023-06-28 08:31] LABS: TOT PROT 6.4 g/dl (6.4-8.2)
[2023-06-28 08:47] VITALS: BP 147/65; PULSE 63
[2023-06-28] MEDS: ASPIRIN COATED 81 MG TABLET.EC PO SCH (09:36)
[2023-06-28] MEDS: cloNIDine HCL 0.1 MG TABLET PO SCH (09:36)
[2023-06-28] MEDS: amLODIPine BESYLATE 10 MG TABLET (FP) PO SCH (09:36)
[2023-06-28] MEDS: VALSARTAN 160 MG TABLET PO SCH (09:37)
[2023-06-28] MEDS ORDERED: CLOPIDOGREL BISULFATE 75 MG TABLET (FP) PO SCH (10:00)
[2023-06-28] MEDS ORDERED: SODIUM ZIRCONIUM CYCLOSILICATE (LOKELMA) 5 GM PACKET PO SCH (10:00)
== END 2023-06-28 14:26 | disposition home or self-care (01) | DRG 641 ==
LOC: JER 11:13 → JERBED 14:42 → J4W 18:49
PROVIDERS: ADMIT Internal Medicine; ATTEND Internal Medicine
DX: E87.5 Hyperkalemia (principal); N17.9 Acute kidney failure, unspecified; R55 Syncope and collapse; I25.10 Atherosclerotic heart disease of native coronary artery without angina pectoris; E78.00 Pure hypercholesterolemia, unspecified; J44.9 Chronic obstructive pulmonary disease, unspecified; R00.1 Bradycardia, unspecified; I65.21 Occlusion and stenosis of right carotid artery; I12.9 Hypertensive chronic kidney disease with stage 1 through stage 4 chronic kidney disease, or unspecified chronic kidney disease; E11.22 Type 2 diabetes mellitus with diabetic chronic kidney disease; N18.9 Chronic kidney disease, unspecified; E11.51 Type 2 diabetes mellitus with diabetic peripheral angiopathy without gangrene; I35.0 Nonrheumatic aortic (valve) stenosis; W18.30XA Fall on same level, unspecified, initial encounter; Y92.098 Other place in other non-institutional residence as the place of occurrence of the external cause; Z95.5 Presence of coronary angioplasty implant and graft; Z95.2 Presence of prosthetic heart valve; Z85.51 Personal history of malignant neoplasm of bladder
CPT/HCPCS: 36415; 70450-TC; 71045-TC-FY; 72125-TC; 72170-TC-FY; 80048; 80053; 81003; 82550; 83735; 84439; 84443; 84484; 85025; 85610; 85730; 87086; 93005; 93010; 93306-TC; 93880-TC; 99285-25

== ENCOUNTER 2024-04-21 16:10 | Emergency (ER) | payer OTHER ==
[2024-04-21 16:22] VITALS: RESP 16; BMI 30.6
[2024-04-21] MEDS ORDERED: MECLIZINE HCL 25 MG TABLET (FP) ONE (17:05)
[2024-04-21] MEDS ORDERED: METOCLOPRAMIDE HCL INJECTION 10 MG/2 ML VIAL ONE (17:05)
[2024-04-21] MEDS: SODIUM CHLORIDE 0.9% 500 ML INFUS.BAG IV ONE (17:32)
[2024-04-21] MEDS: MECLIZINE HCL 25 MG TABLET (FP) PO ONE (17:32)
[2024-04-21 17:33] LABS: BASO % 1.2 % (0-2.0); EOS % 1.6 % (0-4.5); HEMATOCRIT 32.3 % (35.4-49); HEMOGLOBIN 10.5 GM/dL (11.7-16.9); LYMPH % 27.3 % (8-40); MCH 21.7 pg (25.7-33.7); MCHC 32.5 g/dl (32.0-35.9); MEAN CELL VOLUME 66.7 fl (80-96); MEAN PLT VOLUME 7.9 fl (7.5-11.1); MONO % 9.7 % (3.8-10.2); NEUT % 60.2 % (42.8-82.8); PLATELET COUNT 264 10^3/uL (134-434); RBC 4.85 M/mm3 (4.00-5.60); RDW 16.2 % (11.9-15.9); WHITE BLOOD COUNT 6.8 K/mm3 (4.0-10.0)
[2024-04-21] MEDS: METOCLOPRAMIDE HCL INJECTION 10 MG/2 ML VIAL IVPB ONE (17:33)
[2024-04-21 18:02] LABS: POTASSIUM 4.2 mmol/L (3.5-5.1)
[2024-04-21 18:05] LABS: ALBUMIN 4.3 g/dl (3.4-5.0); BLOOD UREA NITROGEN 41.4 mg/dL (7-18); CALCIUM 9.4 mg/dL (8.5-10.1); MAGNESIUM 2.5 mg/dL (1.8-2.4)
[2024-04-21 18:08] LABS: PHOSPHOROUS 4.8 mg/dL (2.5-4.9)
[2024-04-21 18:09] LABS: PH,URINE 5.5 (5.0-8.0); URINE APPEARANCE CLEAR; URINE BILIRUBIN NEGATIVE (NEGATIVE); URINE COLOR YELLOW; URINE GLUCOSE (UA) NEGATIVE (NEGATIVE); URINE KETONE NEGATIVE (NEGATIVE); URINE LEUK ESTERASE NEGATIVE (NEGATIVE); URINE NITRITE NEGATIVE (NEGATIVE); URINE PROTEIN 2+ (NEGATIVE); URINE UROBILINOGEN 0.2 mg/dL (0.2-1.0)
[2024-04-21 18:10] LABS: BILIRUBIN,TOTAL 0.2 mg/dL (0.2-1); TOT PROT 7.4 g/dl (6.4-8.2)
[2024-04-21 18:18] LABS: EPI CELLS 3.7 /uL (0-25.1); HYALINE CASTS 0.14 /uL (0-3.1); URINE RBC 11.2 /uL (0-23.9); URINE WBC 2.6 /uL (0-25.8)
[2024-04-21 18:59] LABS: ANISOCYTOSIS 1+; MACROCYTOSIS 0; ROULEAU 1+
[2024-04-21] MEDS: ACETAMINOPHEN 325 MG TABLET (FP) PO ONE (21:31)
[2024-04-21] MEDS ORDERED: ACETAMINOPHEN 325 MG TABLET (FP) ONE (21:32)
[2024-04-21 21:43] VITALS: BP 182/79; PULSE 76; TEMP 97.4
== END 2024-04-21 22:45 | disposition home or self-care (01) ==
LOC: JER 16:10
PROC: 3E033GC Introduction of Other Therapeutic Substance into Peripheral Vein, Percutaneous Approach (ICD-10-PCS; principal; 2024-04-21)
DX: R42 Dizziness and giddiness (principal); R11.2 Nausea with vomiting, unspecified; R61 Generalized hyperhidrosis; R06.02 Shortness of breath; R51.9 Headache, unspecified; Z20.822 Contact with and (suspected) exposure to COVID-19
CPT/HCPCS: 0241U-QW; 36415; 70450-TC; 70551-TC; 71046-TC-FY; 80053; 81003; 83735; 83880; 84100; 84484; 85025; 87086; 93005; 93010; 96374; 99285-25